=== PATIENT | female | born 1995 | race African-American/Black ===

== ENCOUNTER 2024-04-14 08:47 | Outpatient (CLI) | payer OTHER | END 2024-04-14 08:48 | disposition home or self-care (01) | LOC: CSHULT 08:47 | DX: Z34.82 Encounter for supervision of other normal pregnancy, second trimester (principal); Z3A.21 21 weeks gestation of pregnancy | CPT/HCPCS: 76805 ==

== ENCOUNTER 2024-07-24 00:27 | Day surgery (SDC) | payer OTHER ==
[2024-07-24 00:53] VITALS: BMI 31.6
[2024-07-24] MEDS ORDERED: hydrALAZINE 20 MG/ML VIAL SLOW IVP PRN (01:20)
[2024-07-24] MEDS: Ondansetron PF 4 MG/2 ML Vial IVP SCH (01:59)
[2024-07-24] MEDS: Lactated Ringer's 1,000 ML IV SCH (02:00)
[2024-07-24] MEDS: Ondansetron PF 4 MG/2 ML Vial ONE (02:00)
[2024-07-24 02:22] LABS: #Basophils 0.02 10x3/uL (0.0-0.2); #Eosinophils 0.02 10x3/uL (0.0-0.5); #Monocytes 1.04 10x3/uL (0.0-1.1); #Neutrophils 6.59 10x3/uL (1.5-8.4); %Basophils 0.2 % (0.0-2.0); %Eosinophils 0.2 % (0.0-6.0); %Lymphocytes 26.7 % (18.0-47.0); %Monocytes 9.9 % (0.0-10.0); %Neutrophils 62.6 % (40.0-75.0); Hematocrit 31.1 % (34.9-44.5); Hemoglobin 11.2 g/dL (12.0-15.5); Mean Corpuscular Hemoglobin 29.4 pg (27.0-33.0); Mean Corpuscular Volume 81.6 fL (81.6-98.3); Mean Platelet Volume 12.3 fL (7.4-10.4); Platelet Count 195 10x3/uL (150-450); RBC Distribution Width 13.5 % (11.5-14.5); Red Blood Cell (RBC) Count 3.81 10x6/uL (3.90-5.03); White Blood Cell (WBC) Count 10.5 10x3/uL (3.5-10.5)
[2024-07-24 02:33] LABS: ALT (SGPT) 46 U/L (8-55); AST (SGOT) 39 U/L (5-34); Albumin 3.3 g/dL (3.5-5.0); Alkaline Phosphatase 221 U/L (40-110); Anion Gap 16 mmol/L (10-20); BUN (Urea Nitrogen) 4 mg/dL (7.0-18.7); Bilirubin, Total 0.9 mg/dL (0.2-1.2); Calc. Creatinine Clearance 178 mL/min (70-130); Calcium 9.8 mg/dL (7.8-10.44); Carbon Dioxide 22 mmol/L (22-29); Chloride 107 mmol/L (98-107); Estimated GFR 125; Glucose 80 mg/dL (70-105); Potassium 3.6 mmol/L (3.5-5.1); Protein, Total 7.3 g/dL (6.0-8.3); Sodium 141 mmol/L (136-145)
[2024-07-24 02:50] LABS: Bilirubin Neg (Negative); Blood, Urine Negative (Negative); Clarity Clear (Clear); Glucose, Urine (Dipstick) Normal (Negative); Ketone, Urine 15 mg/dL (Negative); Leukocyte 25 (Negative); Nitrite Negative (Negative); Protein, Urine (Dipstick) Negative (Neg-Trace); Urobilinogen Normal mg/dL (Less than 2)
[2024-07-24 03:08] LABS: CAUTI Indications for Culture Pregnancy; RBC/HPF None Seen HPF (0-3); WBC/HPF 0-3 HPF (0-3)
[2024-07-24 03:09] LABS: Bacteria/HPF Rare-Few HPF (None Seen)
[2024-07-24 03:10] LABS: Urine Culture Reflex Yes Yes
[2024-07-24] MEDS: Famotidine/PF 20 mg/2ml Vial SLOW IVP SCH (03:57)
== END 2024-07-24 04:05 | disposition home or self-care (01) ==
LOC: CSHLD/OP 00:27
PROVIDERS: ATTEND Family Medicine
DX: O47.03 False labor before 37 completed weeks of gestation, third trimester (principal); O21.2 Late vomiting of pregnancy; O99.283 Endocrine, nutritional and metabolic diseases complicating pregnancy, third trimester; E86.0 Dehydration; O98.813 Other maternal infectious and parasitic diseases complicating pregnancy, third trimester; A74.9 Chlamydial infection, unspecified; O98.313 Other infections with a predominantly sexual mode of transmission complicating pregnancy, third trimester; A60.00 Herpesviral infection of urogenital system, unspecified; O99.343 Other mental disorders complicating pregnancy, third trimester; F41.9 Anxiety disorder, unspecified; F32.A Depression, unspecified; O23.43 Unspecified infection of urinary tract in pregnancy, third trimester; Z3A.36 36 weeks gestation of pregnancy; Z79.899 Other long term (current) drug therapy
CPT/HCPCS: 36415; 80053; 81001; 85025; 87086; 96360; 96361; 96375; 99283; J2405; J3490

== ENCOUNTER 2024-07-28 20:05 | Day surgery (SDC) | payer OTHER ==
[2024-07-28] MEDS ORDERED: hydrALAZINE 20 MG/ML VIAL SLOW IVP PRN (20:31)
[2024-07-28 20:47] VITALS: BMI 31.6
== END 2024-07-28 22:20 | disposition home or self-care (01) ==
LOC: CSHLD/OP 20:05
PROVIDERS: ATTEND Family Medicine
DX: O47.1 False labor at or after 37 completed weeks of gestation (principal); O98.513 Other viral diseases complicating pregnancy, third trimester; B00.9 Herpesviral infection, unspecified; O14.90 Unspecified pre-eclampsia, unspecified trimester; O98.813 Other maternal infectious and parasitic diseases complicating pregnancy, third trimester; B37.31 Acute candidiasis of vulva and vagina; Z79.899 Other long term (current) drug therapy; Z3A.37 37 weeks gestation of pregnancy
CPT/HCPCS: 87480; 87510; 87660

== ENCOUNTER 2024-08-05 22:35 | Inpatient (IN) | payer BC, OTHER ==
[2024-08-05 23:00] VITALS: BMI 32.4
[2024-08-06] MEDS ORDERED: Misoprostol 200 MCG TAB PR PRN (00:12)
[2024-08-06] MEDS ORDERED: Methylergonovine 0.2 MG/ML VIAL IM PRN (00:12)
[2024-08-06] MEDS ORDERED: Acetaminophen 500 MG TAB PO PRN (00:12)
[2024-08-06] MEDS ORDERED: Lidocaine 1% (PF) 30 ML VIAL SC PRN (00:12)
[2024-08-06] MEDS ORDERED: Tranexamic Acid 1,000 MG/10 ML VIAL IVP PRN (00:12)
[2024-08-06] MEDS ORDERED: Promethazine HCl 25 MG/ML VIAL IM PRN ×3 (00:12→17:24)
[2024-08-06] MEDS ORDERED: Ibuprofen 800 MG TAB PO PRN (00:12)
[2024-08-06] MEDS ORDERED: Carboprost 250 MCG/ML AMP IM PRN (00:12)
[2024-08-06] MEDS ORDERED: fentaNYL 50 mcg/mL 1 mL Vial SLOW IVP PRN (00:12)
[2024-08-06] MEDS ORDERED: Diphenoxylate HCl/Atropine Tablet PO PRN (00:12)
[2024-08-06] MEDS ORDERED: hydrALAZINE 20 MG/ML VIAL SLOW IVP PRN ×2 (00:12→17:24)
[2024-08-06] MEDS ORDERED: Oxytocin 30 units/NS 500 ML 500 ML IV SCH (00:15)
[2024-08-06] MEDS: Lactated Ringer's 1,000 ML IV SCH (00:30)
[2024-08-06 01:13] LABS: Hematocrit 28.1 % (34.9-44.5); Mean Corpuscular HGB CONC 35.6 g/dL (32.0-36.0); Mean Corpuscular Hemoglobin 28.5 pg (27.0-33.0); Mean Corpuscular Volume 80.1 fL (81.6-98.3); Mean Platelet Volume 12.5 fL (7.4-10.4); Platelet Count 190 10x3/uL (150-450); RBC Distribution Width 13.3 % (11.5-14.5); Red Blood Cell (RBC) Count 3.51 10x6/uL (3.90-5.03); White Blood Cell (WBC) Count 13.13 10x3/uL (3.5-10.5)
[2024-08-06 01:28] LABS: HBsAg Index 0.24 S/CO (0-0.99); Hep B Surf Ag - L&D Non-Reactive S/CO (NonReactive)
[2024-08-06 01:30] LABS: Syphilis Antibody Nonreactive (Nonreactive); Syphilis Antibody Index 0.05 S/CO (<1.00 Non-Reactive)
[2024-08-06] MEDS: fentaNYL/Ropivacaine Epidural 100 ML ONE (03:47)
[2024-08-06] MEDS ORDERED: diphenhydrAMINE 50 MG/ML VIAL IVP PRN (04:06)
[2024-08-06] MEDS ORDERED: ePHEDrine Sulfate 50 MG/10 ML VIAL SLOW IVP PRN (04:06)
[2024-08-06] MEDS ORDERED: Naloxone HCl 0.4 mg/ml Vial IVP PRN ×2 (04:06)
[2024-08-06] MEDS ORDERED: Lactated Ringer's 500 ML IV PRN (04:06)
[2024-08-06] MEDS ORDERED: Moisturizing Cream (Eucerin) 113 GM JAR TOP PRN (04:06)
[2024-08-06] MEDS ORDERED: Communication Order-Pharmacy FS SCH (04:15)
[2024-08-06] MEDS: Ondansetron PF 4 MG/2 ML Vial IVP PRN ×2 (04:50→19:30)
[2024-08-06] MEDS: Oxytocin 30 units/NS 500 ML 500 ML IV SCH (10:08)
[2024-08-06] MEDS: fentaNYL 2 mcg/Ropivacaine 0.2% Epidural 100 ML CADD EPIDURAL SCH (11:19)
[2024-08-06] MEDS: Famotidine/PF 20 mg/2ml Vial SLOW IVP SCH (12:00)
[2024-08-06] MEDS ORDERED: diphenhydrAMINE 25 MG CAP PO PRN (17:24)
[2024-08-06] MEDS ORDERED: Milk Of Magnesia 30 ML UDCUP PO PRN (17:24)
[2024-08-06] MEDS ORDERED: Benzocaine-Menthol 82.5 ML CAN TOP PRN (17:24)
[2024-08-06] MEDS ORDERED: Boostrix 0.5 ML (Tdap) VIAL (>/=7 yrs of age) IM ONE (17:24)
[2024-08-06] MEDS ORDERED: Ondansetron PF 4 MG/2 ML Vial IVP PRN (17:24)
[2024-08-06] MEDS ORDERED: Bisacodyl 10 MG SUPP PR PRN (17:24)
[2024-08-06] MEDS ORDERED: Lanolin Ointment 7 GM TUBE TOP PRN (17:24)
[2024-08-06] MEDS: Acetaminophen 325 MG TAB PO PRN (18:36)
[2024-08-06] MEDS: Docusate 100 MG CAP PO SCH (20:56)
[2024-08-06] MEDS: Ibuprofen 800 MG TAB PO SCH (22:44)
[2024-08-07] MEDS ORDERED: HYDROcodone/Acetaminophen 5/325 mg Tablet PO PRN (06:00)
[2024-08-07] MEDS: Ferrous Sulfate 325 MG TAB PO SCH (07:45)
[2024-08-07] MEDS: Prenatal Vitamin 1 TAB PO SCH (07:45)
[2024-08-07 11:46] VITALS: BP 119/67; TEMP 97.4
== END 2024-08-07 19:45 | disposition home or self-care (01) | DRG 807 ==
LOC: CSHLD/OP 22:35 → CSHLD 08-06 00:14 → CSHPP 08-06 18:00
PROVIDERS: ADMIT Family Medicine; ATTEND Family Medicine
PROC: 10E0XZZ Delivery of Products of Conception, External Approach (ICD-10-PCS; principal; 2024-08-06)
DX: O80 Encounter for full-term uncomplicated delivery (principal); Z37.0 Single live birth; Z3A.38 38 weeks gestation of pregnancy
CPT/HCPCS: 51702; 85027; 86780; 86850; 86900; 86901; 87340; 99285; J2405; J2590; J3490; J7120